=== PATIENT | female | born 1975 | race Caucasian/White ===

== ENCOUNTER 2019-12-12 10:00 | Inpatient (IN) | payer OTHER ==
[~2019-12-12] VITALS: Ht 160 cm; Wt 73.4 kg
[2019-12-12] VITALS (7 sets, daily range): BP systolic 98–110; BP diastolic 56–79
[~2019-12-12 10:00] MED LIST: LIDOcaine 2% (20 mg/ml) 5ml cardiac syringe ONE; MAGNESIUM SULFATE 4 MEQ/ML (5gm/10ml) injection ONE; NORepinephrine 1 mg/ml inj IV ONE; albumin (human) 25% 100 ML IV solution IV ONE; aminocaproic acid 250 MG/1 ML inj. ONE; calcium chloride 100 MG/1 ML inj IV ONE; heparin 1,000 units/ml 10ml inj ONE; heparin 10,000 units/1 ML INJ ONE; methylPREDNISolone sod succ 1000mg vial ONE; phenylephrine 10mg/ml inj. ONE; potassium Cl 2 mEq/ml inj IV ONE; sodium bicarbonate (8.4%) 1 mEq/ml syringe ONE
[2019-12-12 11:21] LABS: BASOPHILS # (AUTO) 0.1 X10'3 (0-0.2); EOSINOPHILS # (AUTO) 0.2 X10'3 (0-0.9)
[2019-12-12 11:23] LABS: BASOPHILS % (AUTO) 1.3 % (0-1); EOSINOPHILS % (AUTO) 2.8 % (0-6); HEMATOCRIT 43.5 % (35.0-45.0); HEMOGLOBIN 15.9 g/dl (12.0-16.0); LYMPHOCYTES # (AUTO) 1.4 X10'3 (1.1-4.8); LYMPHOCYTES % (AUTO) 19.4 % (21-51); MEAN CORPUSCULAR HEMOGLOBIN 32.8 PG (27.0-31.0); MEAN CORPUSCULAR HGB CONC 36.6 g/dL (33.0-36.5); MEAN CORPUSCULAR VOLUME 89.5 FL (78-98); MEAN PLATELET VOLUME 9.4 FL (7.4-10.4); MONOCYTES # (AUTO) 0.6 X10'3 (0-0.9); MONOCYTES % (AUTO) 7.7 % (2-12); NEUTROPHILS # (AUTO) 4.9 X10'3 (1.8-7.7); NEUTROPHILS % (AUTO) 68.8 % (42-75); PLATELET COUNT 356 X10'3 (140-440); RED BLOOD COUNT 4.86 X10'6 (4.20-5.60); RED CELL DISTRIBUTION WIDTH 13.9 % (11.5-14.5); WHITE BLOOD COUNT 7.1 X10'3 (4.5-11.0)
[2019-12-12] MEDS ORDERED: nitroGLYCERIN 0.4mg SUBLingual tab SL PRN (11:30)
[2019-12-12] MEDS ORDERED: aspirin 81mg tab.chew PO ONE (11:30)
[2019-12-12 11:36] LABS: ALANINE AMINOTRANSFERASE 67 U/L (12-78); ALBUMIN 4.5 G/DL (3.4-5.0); ALBUMIN/GLOBULIN RATIO 1.1 (1.1-1.5); ALKALINE PHOSPHATASE 58 IU/L (46-116); ANION GAP 8 (8-16); ASPARTATE AMINO TRANSFERASE 49 U/L (10-37); BILIRUBIN,TOTAL 0.9 MG/DL (0.1-1.0); BLOOD UREA NITROGEN 12 MG/DL (7-18); BUN/CREATININE RATIO 20.3 (6.6-38.0); CALCIUM 9.4 MG/DL (8.5-10.1); CHLORIDE 101 MMOL/L (99-107); CREATININE 0.59 MG/DL (0.40-0.90); GLUCOSE 137 MG/DL (70-104); POTASSIUM 3.5 MMOL/L (3.5-5.1); SODIUM 139 MMOL/L (135-145); TOTAL CARBON DIOXIDE 29.8 MMOL/L (24-32); TOTAL PROTEIN 8.7 G/DL (6.4-8.2); eGFR > 90 ML/MIN
[2019-12-12] MEDS ORDERED: heparin 25,000 UNIT/250ml bag 250 ML IV SCH ×2 (11:42→11:58)
[2019-12-12] MEDS ORDERED: ondansetron/PF 4mg/2ml inj IV ONE ×2 (11:45)
[2019-12-12] MEDS ORDERED: heparin 10,000 units/1 ML INJ IV PRN ×2 (11:45→12:00)
[2019-12-12] MEDS ORDERED: heparin 10,000 units/1 ML INJ IV ONE ×2 (11:45→11:50)
[2019-12-12] MEDS ORDERED: normal saline 1000ml 1,000 ML IV SCH (11:58)
[2019-12-12] MEDS ORDERED: ondansetron/PF 4mg/2ml inj IV PRN (12:00)
[2019-12-12] MEDS ORDERED: magnesium 4gm in 100ml NS 100 ML IV PRN ×3 (12:00→21:05)
[2019-12-12] MEDS ORDERED: acetaminophen 325mg tablet PO PRN ×5 (12:00→21:05)
[2019-12-12] MEDS ORDERED: mag hydrox/Alum hydrox/simeth 30ml oral suspension PO PRN (12:00)
[2019-12-12] MEDS ORDERED: magnesium Cl slow-release 64mg tablet PO PRN (12:00)
[2019-12-12] MEDS ORDERED: potassium Cl 20 mEq SR tablet PO PRN ×3 (12:00→14:55)
[2019-12-12] MEDS ORDERED: HYDROcodone/acetaminophen 5mg/325mg tablet PO PRN (12:00)
[2019-12-12] MEDS ORDERED: morphine 2 MG/ML inj. syringe IV PRN ×2 (12:00)
[2019-12-12] MEDS ORDERED: magnesium hydroxide 30ml (MOM) UD suspension PO PRN ×2 (12:00→21:05)
[2019-12-12] MEDS ORDERED: potassium CL 10mEq/100ml bag 100 ML IV PRN ×2 (12:00)
[2019-12-12] MEDS ORDERED: HYDROcodone/acetaminophen 10/325mg tab PO PRN ×2 (12:00→21:05)
[2019-12-12] MEDS ORDERED: bisacodyl 10mg suppository rectal RC PRN ×2 (12:00→21:05)
[2019-12-12] MEDS ORDERED: magnesium 2GM in 50ml NS 50 ML IV PRN ×2 (12:00→14:55)
[2019-12-12 12:08] LABS: PARTIAL THROMBOPLASTIN TIME 24 SECONDS (22-32)
[2019-12-12] MEDS ORDERED: iohexol 350 MG/1 ML 200ml bottle ONE ×2 (12:30→13:54)
[2019-12-12] MEDS ORDERED: LIDOcaine 1% (10mg/ml)w/preservative injection 20ml MDV ONE (12:30)
[2019-12-12] MEDS ORDERED: fentaNYL/PF 50MCG/1 ML 2ML syringe ONE (12:30)
[2019-12-12] MEDS ORDERED: heparin 1,000unit/ml 10ml vial 10 ML ONE (12:30)
[2019-12-12] MEDS ORDERED: iohexol 350 MG/ML 50ML vial IV ONE (12:30)
[2019-12-12] MEDS ORDERED: midazolam 2 mg/2 ml injection ONE ×2 (12:30→13:45)
[2019-12-12] MEDS ORDERED: LEVO88TA7 PO (12:47)
[2019-12-12] MEDS ORDERED: CITA10TA9 PO (12:47)
[2019-12-12] MEDS ORDERED: nitroGLYCERIN-Tridil 50MG/D5W 250 ML IV ONE (13:04)
[2019-12-12 13:20] LABS: HEMOGLOBIN A1C 4.7 % (4.5-6.2)
[2019-12-12 13:57] LABS: LARGE PLATELETS MODERATE; PLATELET ESTIMATE NORMAL
[2019-12-12 13:59] LABS: SPHEROCYTES 1+
[2019-12-12] MEDS ORDERED: proCHLORperazine 10 MG/2 ml inj ONE (14:10)
[2019-12-12] MEDS ORDERED: HYDROmorphone 1 mg/ml syringe ONE (14:37)
[2019-12-12] MEDS: Insulin Reg/NS 100units/100mL 100 ML IV SCH (14:52)
[2019-12-12] MEDS ORDERED: insulin glargine (Lantus) pen - multi-dose SQ PRN ×2 (14:55→21:05)
[2019-12-12] MEDS ORDERED: potassium Cl 20mEq/100mL bag 100 ML IV PRN (14:55)
[2019-12-12] MEDS ORDERED: MALTODEXTRIN/FRUCTOSE 0.68 KCAL/ML LIQUID 296ML BOTTLE PO ONE (14:55)
[2019-12-12] MEDS ORDERED: gabapentin 400mg capsule PO ONE (14:55)
[2019-12-12] MEDS ORDERED: cefazolin/dext.iso 2gm/50ml 50 ML IV ONE (14:55)
[2019-12-12] MEDS ORDERED: vancomycin/NS 1 GM ADD-VANTAGE 250 ML IV ONE (14:55)
[2019-12-12] MEDS ORDERED: MESSAGE TO NURSING PO ONE ×4 (14:55)
[2019-12-12] MEDS ORDERED: dextrose 50%-water 50ml dispensing syringe IV PRN ×2 (14:55→21:05)
[2019-12-12] MEDS ORDERED: SUFENTANIL CITRATE 50 MCG/ML 2ml ampule IV ONE (15:15)
[2019-12-12] MEDS ORDERED: MIDAZolam 1mg/ml 10ml vial ONE (15:16)
[2019-12-12] MEDS ORDERED: ringers solution, lacted 1,000 ML IV ONE (15:25)
[2019-12-12] MEDS ORDERED: ceFAZolin 1000mg inj ONE (16:22)
[2019-12-12] MEDS ORDERED: cyclobenzaprine 10mg tablet PO PRN (16:25)
[2019-12-12] MEDS ORDERED: OXAZEpam 15mg capsule PO PRN (16:25)
[2019-12-12] MEDS ORDERED: albumin (Human) 5% 250ml BOTTLE IV ONE (16:28)
[2019-12-12] MEDS ORDERED: isoflurane 100ml inhalation liquid IH ONE (16:28)
[2019-12-12] MEDS ORDERED: heparin 1,000 units/ml 10ml inj ONE (16:28)
[2019-12-12] MEDS ORDERED: aminocaproic acid 250 MG/1 ML inj. ONE (16:28)
[2019-12-12] MEDS ORDERED: protamine sulf. 10mg/ml inj. IV ONE (16:28)
[2019-12-12] MEDS ORDERED: DOBUTamine/D5W 500mg/250ml premix IV ONE (16:28)
[2019-12-12] MEDS ORDERED: nitroGLYCERIN in D5W 50mg/250ml (Tridil) infusion IV ONE (16:28)
--- NOTE | 2019-12-12 16:30 | NUR ---
[id number] received from track repair laborer on iabp. pt with hearing disability used full face shield instead of mask so pt may read lips. prepared for surgery, chlorhex. bath and new gown, carotids done. 2 rings and one set of earring removed and given to at bedside witnessed by ruth cullenor mirta. pt very sleepy therefore consent was discussed pt and . pt on menes tampon removed intact. fc placed with return of clear yellow urine greater than 350cc. just after pt left for cvor lab called with critical ptt reported to payton kirby in or to give message. ativan held d/t pt already sleepy cvor rn aware.
[2019-12-12 16:32] LABS: PARTIAL THROMBOPLASTIN TIME > 139 SECONDS (22-32)
[2019-12-12 17:46] LABS: ABG BASE EXCESS -4.5 mmol/L (-2.0-2.0); ABG HCO3 19.5 mmol/L (22.0-26.0); ABG OXYGEN SATURATION 98.5 % (94-97); ABG PCO2 32.5 mmHg (32.0-45.0); ABG PO2 184.5 mmHg (75.0-100.0); CL (ABG) 105 mmol/L (98-110); FCOHb 0.3 % (0.0-3.9); FMetHb 0.2 % (0.0-1.5); GLUCOSE (ABG) 127 mg/dl (70-140); IONIZED CA (ABG) 1.06 mmol/L (1.10-1.43); K (ABG) 3.5 mmol/L (3.5-5.0); TOTAL HEMOGLOBIN 12.6 G/dl (12.0-16.0)
[2019-12-12] MEDS ORDERED: papaverine 30 mg/ml 2ml inj. IA ONE (17:51)
[2019-12-12] MEDS ORDERED: 0.9 % SODIUM CHLORIDE 10 ML VIAL ONE ×3 (17:55)
[2019-12-12] MEDS ORDERED: rocuronium 10mg/ml inj IV ONE ×3 (17:55→18:24)
[2019-12-12] MEDS ORDERED: propofol inj 20 ML IV ONE (17:56)
[2019-12-12] MEDS ORDERED: LIDOcaine 2% (20mg/ml) 5ml vial ONE (17:56)
[2019-12-12] MEDS ORDERED: phenylephrine 10mg/ml inj. ONE (17:56)
[2019-12-12] MEDS ORDERED: ePHEDrine 50MG/ML INJ. ONE (17:56)
[2019-12-12] MEDS ORDERED: midazolam 2 mg/2 ml injection IV PRN (18:40)
[2019-12-12] MEDS ORDERED: fentaNYL/PF 50MCG/1 ML 2ML syringe IV PRN (18:40)
[2019-12-12] MEDS ORDERED: heparin 10,000 units/1 ML INJ IR ONE (19:00)
[2019-12-12 19:01] LABS: ABG BASE EXCESS -0.6 mmol/L (-2.0-2.0); ABG HCO3 22.8 mmol/L (22.0-26.0); ABG OXYGEN SATURATION 99.3 % (94-97); ABG PCO2 32.7 mmHg (32.0-45.0); ABG PO2 502.6 mmHg (75.0-100.0); CL (ABG) 103 mmol/L (98-110); FCOHb 0.2 % (0.0-3.9); FMetHb 0.2 % (0.0-1.5); FO2Hb 98.9 % (94-97); GLUCOSE (ABG) 139 mg/dl (70-140); IONIZED CA (ABG) 0.91 mmol/L (1.10-1.43); K (ABG) 4.8 mmol/L (3.5-5.0); TOTAL HEMOGLOBIN 8.9 G/dl (12.0-16.0)
[2019-12-12 19:20] LABS: ABG BASE EXCESS VENOUS -2.1 mmol/L; ABG HCO3 VENOUS 22.9 mmol/L; ABG PCO2 VENOUS 40.2 mmHg; ABG PO2 VENOUS 49.4 mmHg; CL (ABG) 103 mmol/L (98-110); FCOHb VENOUS 0.5 %; FHHb VENOUS 14.8 %; FO2Hb VENOUS 84.7 %; GLUCOSE (ABG) 140 mg/dl (70-140); IONIZED CA (ABG) 0.96 mmol/L (1.10-1.43); K (ABG) 4.2 mmol/L (3.5-5.0); TOTAL HEMOGLOBIN 9.7 G/dl (12.0-16.0)
[2019-12-12 19:45] LABS: ABG BASE EXCESS 1.9 mmol/L (-2.0-2.0); ABG HCO3 26.8 mmol/L (22.0-26.0); ABG OXYGEN SATURATION 99.3 % (94-97); ABG PCO2 43.9 mmHg (32.0-45.0); ABG PO2 475.5 mmHg (75.0-100.0); CL (ABG) 102 mmol/L (98-110); FCOHb 0.4 % (0.0-3.9); FMetHb 0.1 % (0.0-1.5); FO2Hb 98.8 % (94-97); GLUCOSE (ABG) 147 mg/dl (70-140); IONIZED CA (ABG) 1.57 mmol/L (1.10-1.43); K (ABG) 3.9 mmol/L (3.5-5.0); TOTAL HEMOGLOBIN 8.4 G/dl (12.0-16.0)
[2019-12-12] MEDS ORDERED: metoprolol tartrate 12.5mg (1/2 tablet) PO SCH (20:00)
[2019-12-12] MEDS ORDERED: K and/or MAG REPLACEMENT MC SCH (20:00)
[2019-12-12 20:11] LABS: ABG BASE EXCESS -2.5 mmol/L (-2.0-2.0); ABG HCO3 20.6 mmol/L (22.0-26.0); ABG OXYGEN SATURATION 98.9 % (94-97); ABG PCO2 29.4 mmHg (32.0-45.0); ABG PO2 364.8 mmHg (75.0-100.0); CL (ABG) 105 mmol/L (98-110); FCOHb 0.3 % (0.0-3.9); FMetHb 0.6 % (0.0-1.5); GLUCOSE (ABG) 137 mg/dl (70-140); IONIZED CA (ABG) 1.17 mmol/L (1.10-1.43); K (ABG) 3.6 mmol/L (3.5-5.0); TOTAL HEMOGLOBIN 9.7 G/dl (12.0-16.0)
[2019-12-12] MEDS ORDERED: temazepam 15mg capsule PO PRN (21:00)
--- NOTE | 2019-12-12 21:00 | NUR ---
Received to room 2037, accompanied by MDs and surgical crew. Placed on ventilator, to sdc teacher, arterial line and PA line pressure monitored. Chest tubes to suction at 20 cm. August cath to gravity drainage. Dressings are dry and intact. See assessment record. All vasoactive drugs are infusing via central line.
[2019-12-12] MEDS ORDERED: nitroGLYCERIN-Tridil 50MG/D5W 250 ML IV PRN (21:03)
[2019-12-12] MEDS ORDERED: niCARDipine-NS 40mg/200ml IVPB 200 ML IV PRN (21:03)
[2019-12-12] MEDS ORDERED: DOPamine 400mg/D5W 250ml 250 ML IV PRN (21:03)
[2019-12-12] MEDS ORDERED: Insulin Reg/NS 100units/100mL 100 ML IV SCH (21:03)
[2019-12-12] MEDS ORDERED: pantoprazole 40 MG vial IV ONE (21:05)
[2019-12-12] MEDS ORDERED: sodium phosphate inj. 30 MMOL in dextrose 5%-water 250 ML IV PRN (21:05)
[2019-12-12] MEDS ORDERED: morphine 4 MG/ML inj SYRINge IV PRN (21:05)
[2019-12-12] MEDS ORDERED: magnesium citrate 296ml oral solution PO PRN (21:05)
[2019-12-12] MEDS ORDERED: sodium phosphate inj. 15 MMOL in dextrose 5%-water 250 ML IV PRN (21:05)
[2019-12-12] MEDS ORDERED: Neutra Phos packet PO PRN (21:05)
[2019-12-12] MEDS ORDERED: metoclopramide 5 mg/ml inj IV PRN (21:05)
[2019-12-12] MEDS ORDERED: mineral oil 133ml enema RC PRN (21:05)
[2019-12-12] MEDS ORDERED: normal saline 250ml IV soln 250 ML IV PRN (21:05)
[2019-12-12] MEDS ORDERED: morphine 4 MG/ML inj SYRINge ONE (21:15)
[2019-12-12] MEDS ORDERED: propofol 1000mg/100ml bottle 100 ML IV ONE (21:40)
[2019-12-12 21:46] LABS: BASOPHILS % (AUTO) 0.2 % (0-1); EOSINOPHILS % (AUTO) 0 % (0-6); HEMOGLOBIN 11.2 g/dl (12.0-16.0); LYMPHOCYTES # (AUTO) 0.6 X10'3 (1.1-4.8); LYMPHOCYTES % (AUTO) 2.5 % (21-51); MEAN CORPUSCULAR HEMOGLOBIN 32.6 PG (27.0-31.0); MEAN CORPUSCULAR HGB CONC 36.2 g/dL (33.0-36.5); MEAN PLATELET VOLUME 9.4 FL (7.4-10.4); MONOCYTES # (AUTO) 0.8 X10'3 (0-0.9); MONOCYTES % (AUTO) 3.3 % (2-12); NEUTROPHILS # (AUTO) 21.3 X10'3 (1.8-7.7); PLATELET COUNT 137 X10'3 (140-440); RED BLOOD COUNT 3.44 X10'6 (4.20-5.60); RED CELL DISTRIBUTION WIDTH 13.7 % (11.5-14.5); WHITE BLOOD COUNT 22.6 X10'3 (4.5-11.0)
[2019-12-12 21:54] LABS: PARTIAL THROMBOPLASTIN TIME 26 SECONDS (22-32)
[2019-12-12 21:56] LABS: ALANINE AMINOTRANSFERASE 89 U/L (12-78); ALBUMIN 3.3 G/DL (3.4-5.0); ALBUMIN/GLOBULIN RATIO 1.7 (1.1-1.5); ALKALINE PHOSPHATASE 31 IU/L (46-116); ANION GAP 9 (8-16); ASPARTATE AMINO TRANSFERASE 236 U/L (10-37); BILIRUBIN,TOTAL 1.2 MG/DL (0.1-1.0); BLOOD UREA NITROGEN 7 MG/DL (7-18); BUN/CREATININE RATIO 10.1 (6.6-38.0); CHLORIDE 109 MMOL/L (99-107); CREATININE 0.69 MG/DL (0.40-0.90); GLUCOSE 142 MG/DL (70-104); POTASSIUM 3.3 MMOL/L (3.5-5.1); SODIUM 145 MMOL/L (135-145); TOTAL CARBON DIOXIDE 27.5 MMOL/L (24-32); TOTAL PROTEIN 5.2 G/DL (6.4-8.2); eGFR > 90 ML/MIN
[2019-12-12 21:57] LABS: MAGNESIUM 2.9 MG/DL (1.5-2.4); PHOSPHORUS 2.2 MG/DL (2.3-4.5)
[2019-12-12] MEDS: morphine 4 MG/ML inj SYRINge IV PRN ×2 (22:02→23:11)
[2019-12-12] MEDS: albumin (Human) 5% 250ml 250 ML IV PRN (22:05)
[2019-12-12 22:16] LABS: ABG BASE EXCESS -0.4 mmol/L (-2.0-2.0); ABG HCO3 24.9 mmol/L (22.0-26.0); ABG OXYGEN SATURATION 98.7 % (94-97); ABG PCO2 (T) 43.3 mmHg (32.0-45.0); ABG PO2 (T) 214.2 mmHg (75.0-100.0); FCOHb 0.3 % (0.0-3.9); FMetHb 0.3 % (0.0-1.5); FO2Hb 98.1 % (94-97); PEEP 5 cm H2O; RESPIRATORY RATE 12 b/min; TIDAL VOLUME 500 mL; TOTAL HEMOGLOBIN 12.5 G/dl (12.0-16.0)
--- NOTE | 2019-12-12 22:33 | NUR ---
Dr Joaquin updated on patient's current hemodynamics, chest tube output and latest labs. Orders received.
[2019-12-12] MEDS ORDERED: dexmedetomidin/NS 400mcg/100ml 100 ML IV SCH (22:35)
[2019-12-12] MEDS: mupirocin 2% nasal ointment 1gm UD NS SCH (23:11)
[2019-12-12] MEDS: sodium chloride 0.45% 1,000 ML IV SCH (23:12)
[2019-12-12] MEDS: propofol 1000mg/100ml bottle 100 ML IV SCH (23:14)
[2019-12-12 23:21] LABS: TRIGLYCERIDES 27 MG/DL (20-135)
[2019-12-12 23:26] LABS: TROPONIN I 421.47 NG/ML (0.0-0.05)
[2019-12-13] VITALS (24 sets, daily range): BP systolic 87–115; BP diastolic 50–72
--- NOTE | 2019-12-13 01:02 | NUR ---
All cryo given, unable to scan, See paper chart for details
[2019-12-13] MEDS: ceFAZolin 1GM/D5W- ADD-VANTAGE 50 ML IV SCH ×4 (01:05→23:44)
[2019-12-13] MEDS: dexmedetomidine/D5W 100mL 100 ML IV SCH ×4 (02:23→13:47)
[2019-12-13] MEDS: albumin (Human) 5% 250ml 250 ML IV PRN ×2 (02:56→03:43)
[2019-12-13 03:11] LABS: ALANINE AMINOTRANSFERASE 90 U/L (12-78); ALBUMIN 3.8 G/DL (3.4-5.0); ALBUMIN/GLOBULIN RATIO 1.6 (1.1-1.5); ALKALINE PHOSPHATASE 27 IU/L (46-116); ANION GAP 7 (8-16); ASPARTATE AMINO TRANSFERASE 218 U/L (10-37); BILIRUBIN,TOTAL 1.2 MG/DL (0.1-1.0); BLOOD UREA NITROGEN 8 MG/DL (7-18); CALCIUM 7.9 MG/DL (8.5-10.1); CHLORIDE 108 MMOL/L (99-107); CREATININE 0.73 MG/DL (0.40-0.90); GLUCOSE 166 MG/DL (70-104); MAGNESIUM 2.4 MG/DL (1.5-2.4); PHOSPHORUS 1.9 MG/DL (2.3-4.5); SODIUM 145 MMOL/L (135-145); TOTAL CARBON DIOXIDE 30.1 MMOL/L (24-32); TOTAL PROTEIN 6.2 G/DL (6.4-8.2); TRIGLYCERIDES 44 MG/DL (20-135); eGFR 87 ML/MIN
[2019-12-13] MEDS: ondansetron/PF 4mg/2ml inj IV PRN ×2 (03:16→10:22)
[2019-12-13 03:19] LABS: PARTIAL THROMBOPLASTIN TIME 30 SECONDS (22-32)
[2019-12-13] MEDS: potassium Cl 20mEq/100mL bag 100 ML IV PRN ×6 (03:19→17:49)
[2019-12-13] MEDS: propofol 1000mg/100ml bottle 100 ML IV SCH (03:24)
--- NOTE | 2019-12-13 03:25 | NUR ---
Patient restless, nauseated, Zofran given x 1. Titrating Precedex for agitation. Albumin given for for hypotension. Replacing potassium. Will continue to monitor
[2019-12-13 03:33] LABS: BASOPHILS % (AUTO) 0.1 % (0-1); EOSINOPHILS % (AUTO) 0 % (0-6); HEMATOCRIT 25.2 % (35.0-45.0); HEMOGLOBIN 9.2 g/dl (12.0-16.0); LYMPHOCYTES # (AUTO) 0.2 X10'3 (1.1-4.8); LYMPHOCYTES % (AUTO) 1.2 % (21-51); MEAN CORPUSCULAR HEMOGLOBIN 32.7 PG (27.0-31.0); MEAN CORPUSCULAR HGB CONC 36.6 g/dL (33.0-36.5); MEAN CORPUSCULAR VOLUME 89.3 FL (78-98); MEAN PLATELET VOLUME 9.4 FL (7.4-10.4); MONOCYTES # (AUTO) 0.5 X10'3 (0-0.9); MONOCYTES % (AUTO) 3.5 % (2-12); NEUTROPHILS # (AUTO) 14.4 X10'3 (1.8-7.7); NEUTROPHILS % (AUTO) 95.2 % (42-75); PLATELET COUNT 102 X10'3 (140-440); RED BLOOD COUNT 2.82 X10'6 (4.20-5.60); RED CELL DISTRIBUTION WIDTH 13.6 % (11.5-14.5); WHITE BLOOD COUNT 15.1 X10'3 (4.5-11.0)
[2019-12-13 04:40] LABS: ABG BASE EXCESS 0.7 mmol/L (-2.0-2.0); ABG HCO3 24.8 mmol/L (22.0-26.0); ABG OXYGEN SATURATION 97.4 % (94-97); ABG PCO2 (T) 37.2 mmHg (32.0-45.0); ABG PO2 (T) 111.5 mmHg (75.0-100.0); FCOHb 0.3 % (0.0-3.9); FMetHb 0.3 % (0.0-1.5); FO2Hb 96.8 % (94-97); PEEP 5 cm H2O; RESPIRATORY RATE 12 b/min; TIDAL VOLUME 500 mL; TOTAL HEMOGLOBIN 8.7 G/dl (12.0-16.0)
--- NOTE | 2019-12-13 05:55 | NUR ---
Dr. Joaquin update on patient's status, current hemodynamics, and output. Orders received.
[2019-12-13] MEDS ORDERED: famotidine/PF 10 mg/ml inj IV ONE (06:00)
[2019-12-13] MEDS ORDERED: LORazepam 2 mg/ml vial IV ONE (06:00)
[2019-12-13] MEDS ORDERED: NORepinephrine 8mg/ 250ml NS 250 ML IV PRN (06:02)
--- NOTE | 2019-12-13 06:30 | NUR ---
Problems reprioritized. Patient report given, questions answered & plan of care reviewed with Edward STEPHEN.
--- NOTE | 2019-12-13 06:31 | NUR ---
Patient in room ICU 2037. I have received report from Elza STEPHEN and had the opportunity to ask questions and assume patient care.
--- NOTE | 2019-12-13 07:10 | NUR ---
Dr Joaquin present at this time. he removed the balloon pump at 0710. pt tolerated well. femstop in place.
[2019-12-13] MEDS ORDERED: atorvastatin 20mg tablet PO SCH (08:00)
[2019-12-13] MEDS: metoprolol tartrate 12.5mg (1/2 tablet) PO SCH ×2 (08:00→20:00)
[2019-12-13] MEDS ORDERED: mupirocin 2% nasal ointment 1gm UD NS SCH (08:00)
[2019-12-13] MEDS ORDERED: aspirin 81mg tablet.DR PO SCH (08:30)
[2019-12-13] MEDS: CITALOpram 10mg tablet PO SCH (08:41)
[2019-12-13] MEDS: gabapentin 300mg capsule PO SCH ×3 (08:41→21:00)
[2019-12-13] MEDS: atorvastatin 10mg tablet PO SCH (08:42)
[2019-12-13] MEDS: aspirin 325mg tablet, delayed-release (Ecotrin) PO SCH (08:42)
[2019-12-13] MEDS: mupirocin 2% nasal ointment 1gm UD NS SCH ×2 (08:42→20:08)
[2019-12-13] MEDS: sennosides/docusate sodium tablet PO SCH ×2 (08:42→20:00)
[2019-12-13 09:06] LABS: ACTIVATED CLOTTING TIME 113 SEC (101-148)
[2019-12-13] MEDS: levoTHYROXINE 88mcg tablet PO SCH (09:39)
[2019-12-13] MEDS: vancomycin/NS 1 GM ADD-VANTAGE 250 ML IV SCH ×2 (09:43→20:08)
[2019-12-13] MEDS ORDERED: MESSAGE TO NURSING PO ONE (10:00)
[2019-12-13] MEDS: magnesium 2GM in 50ml NS 50 ML IV PRN (12:47)
--- NOTE | 2019-12-13 13:36 | NUR ---
femstop removed at 1320 per protocol. site is CDI at this time. no signs of hematoma.
[2019-12-13 13:49] LABS: PHOSPHORUS 2.8 MG/DL (2.3-4.5); POTASSIUM 3.7 MMOL/L (3.5-5.1)
--- NOTE | 2019-12-13 14:29 | NUR ---
Nutrition consult: Pt s/p CABG x 2 POD # 1. Pt would benefit from nutrition therapy education once stable. Will continue to follow. Addendum: 12/13/19 at [address] Amended: Links added.
[2019-12-13 17:25] LABS: ABG BASE EXCESS 1.2 mmol/L (-2.0-2.0); ABG HCO3 25.4 mmol/L (22.0-26.0); ABG OXYGEN SATURATION 96.1 % (94-97); ABG PCO2 (T) 38.3 mmHg (32.0-45.0); ABG PO2 (T) 85.5 mmHg (75.0-100.0); FCOHb 0.3 % (0.0-3.9); FO2Hb 95.8 % (94-97); PEEP 5 cm H2O; TOTAL HEMOGLOBIN 8.6 G/dl (12.0-16.0)
--- NOTE | 2019-12-13 17:56 | NUR ---
extubated at 1730. tolerated well. on 4L NC and saturations are 97%
[2019-12-13] MEDS: morphine 4 MG/ML inj SYRINge IV PRN ×2 (18:30→20:57)
[2019-12-13] MEDS: mineral oil/petrolatum ophthal oint EACHEYE SCH (20:00)
[2019-12-14] VITALS (23 sets, daily range): BP systolic 87–129; BP diastolic 47–73
[2019-12-14] MEDS: Insulin Reg/NS 100units/100mL 100 ML IV SCH (00:12)
[2019-12-14] MEDS: mineral oil/petrolatum ophthal oint EACHEYE SCH ×4 (02:00→18:58)
[2019-12-14] MEDS: morphine 4 MG/ML inj SYRINge IV PRN ×2 (02:36→05:30)
[2019-12-14 03:18] LABS: BASOPHILS % (AUTO) 0 % (0-1); EOSINOPHILS % (AUTO) 0 % (0-6); HEMATOCRIT 22.9 % (35.0-45.0); HEMOGLOBIN 8.1 g/dl (12.0-16.0); LYMPHOCYTES # (AUTO) 1.3 X10'3 (1.1-4.8); LYMPHOCYTES % (AUTO) 7.4 % (21-51); MEAN CORPUSCULAR HEMOGLOBIN 32.3 PG (27.0-31.0); MEAN CORPUSCULAR HGB CONC 35.5 g/dL (33.0-36.5); MEAN CORPUSCULAR VOLUME 91.1 FL (78-98); MEAN PLATELET VOLUME 10.8 FL (7.4-10.4); MONOCYTES # (AUTO) 1.4 X10'3 (0-0.9); MONOCYTES % (AUTO) 7.9 % (2-12); NEUTROPHILS # (AUTO) 14.5 X10'3 (1.8-7.7); NEUTROPHILS % (AUTO) 84.7 % (42-75); PLATELET COUNT 125 X10'3 (140-440); RED BLOOD COUNT 2.51 X10'6 (4.20-5.60); RED CELL DISTRIBUTION WIDTH 13.4 % (11.5-14.5); WHITE BLOOD COUNT 17.2 X10'3 (4.5-11.0)
[2019-12-14 03:39] LABS: ALBUMIN 3.4 G/DL (3.4-5.0); ANION GAP 5 (8-16); BLOOD UREA NITROGEN 12 MG/DL (7-18); BUN/CREATININE RATIO 19.7 (6.6-38.0); CALCIUM 7.4 MG/DL (8.5-10.1); CHLORIDE 107 MMOL/L (99-107); CREATININE 0.61 MG/DL (0.40-0.90); GLUCOSE 145 MG/DL (70-104); MAGNESIUM 2.4 MG/DL (1.5-2.4); POTASSIUM 4.1 MMOL/L (3.5-5.1); SODIUM 140 MMOL/L (135-145); TOTAL CARBON DIOXIDE 28.5 MMOL/L (24-32); eGFR > 90 ML/MIN
[2019-12-14] MEDS: ketorolac tromethamine 15mg/ml inj. IV SCH ×3 (07:30→20:51)
[2019-12-14] MEDS: ondansetron/PF 4mg/2ml inj IV PRN (07:30)
[2019-12-14] MEDS: ceFAZolin 1GM/D5W- ADD-VANTAGE 50 ML IV SCH (07:36)
[2019-12-14] MEDS: metoprolol tartrate 12.5mg (1/2 tablet) PO SCH ×2 (08:00→18:58)
[2019-12-14] MEDS: potassium Cl 20mEq/100mL bag 100 ML IV PRN ×2 (08:28→08:58)
[2019-12-14] MEDS: vancomycin/NS 1 GM ADD-VANTAGE 250 ML IV SCH (08:57)
[2019-12-14] MEDS: aspirin 325mg tablet, delayed-release (Ecotrin) PO SCH (08:58)
[2019-12-14] MEDS: atorvastatin 10mg tablet PO SCH (08:58)
[2019-12-14] MEDS: sennosides/docusate sodium tablet PO SCH ×2 (08:58→20:51)
[2019-12-14] MEDS: CITALOpram 10mg tablet PO SCH (08:58)
[2019-12-14] MEDS: HYDROcodone/acetaminophen 10/325mg tab PO PRN (08:58)
[2019-12-14] MEDS: levoTHYROXINE 88mcg tablet PO SCH (08:58)
[2019-12-14] MEDS: gabapentin 300mg capsule PO SCH ×3 (08:58→20:51)
[2019-12-14] MEDS: mupirocin 2% nasal ointment 1gm UD NS SCH (08:58)
[2019-12-14] MEDS: pantoprazole 40mg Tablet.DR PO SCH (09:00)
[2019-12-14] MEDS ORDERED: furosemide 40mg/4ml inj IV ONE (13:25)
[2019-12-14] MEDS: magnesium 2GM in 50ml NS 50 ML IV PRN (13:46)
--- NOTE | 2019-12-14 14:30 | NUR ---
Dr. Joaquin notified and aware that patient's SBP has been in the upper 80s low 90s with MAP in the in the 60s; orders to hold ONE time dose of Lasix. Also, Dr. Joaquin aware patient with low urine output with some hours with 0ml urine; no new orders at this time.
[2019-12-14] MEDS: dexmedetomidine/D5W 100mL 100 ML IV SCH (15:38)
[2019-12-14 17:31] LABS: MAGNESIUM 3.5 MG/DL (1.5-2.4); POTASSIUM 5.2 MMOL/L (3.5-5.1)
--- NOTE | 2019-12-14 18:34 | NUR ---
Problems reprioritized. Patient report given, questions answered & plan of care reviewed with Libby STEPHEN.
[2019-12-14] MEDS: sodium chloride 0.45% 1,000 ML IV SCH (21:03)
[2019-12-15] VITALS (16 sets, daily range): BP systolic 102–135; BP diastolic 55–75
[2019-12-15] MEDS: mineral oil/petrolatum ophthal oint EACHEYE SCH ×4 (02:00→19:21)
[2019-12-15] MEDS: ketorolac tromethamine 15mg/ml inj. IV SCH ×4 (02:11→19:25)
[2019-12-15 02:22] LABS: BASOPHILS # (AUTO) 0.1 X10'3 (0-0.2); BASOPHILS % (AUTO) 0.6 % (0-1); EOSINOPHILS # (AUTO) 0.1 X10'3 (0-0.9); EOSINOPHILS % (AUTO) 0.7 % (0-6); HEMOGLOBIN 7.7 g/dl (12.0-16.0); LYMPHOCYTES # (AUTO) 3.1 X10'3 (1.1-4.8); LYMPHOCYTES % (AUTO) 22.8 % (21-51); MEAN CORPUSCULAR HGB CONC 35.8 g/dL (33.0-36.5); MEAN CORPUSCULAR VOLUME 92.2 FL (78-98); MEAN PLATELET VOLUME 10.5 FL (7.4-10.4); MONOCYTES # (AUTO) 1.2 X10'3 (0-0.9); MONOCYTES % (AUTO) 8.8 % (2-12); NEUTROPHILS # (AUTO) 9.2 X10'3 (1.8-7.7); NEUTROPHILS % (AUTO) 67.1 % (42-75); PLATELET COUNT 137 X10'3 (140-440); RED BLOOD COUNT 2.32 X10'6 (4.20-5.60); RED CELL DISTRIBUTION WIDTH 13.8 % (11.5-14.5); WHITE BLOOD COUNT 13.8 X10'3 (4.5-11.0)
[2019-12-15 02:34] LABS: ALBUMIN 2.9 G/DL (3.4-5.0); ANION GAP 2 (8-16); BLOOD UREA NITROGEN 13 MG/DL (7-18); BUN/CREATININE RATIO 26.5 (6.6-38.0); CALCIUM 7.4 MG/DL (8.5-10.1); CHLORIDE 105 MMOL/L (99-107); CREATININE 0.49 MG/DL (0.40-0.90); GLUCOSE 110 MG/DL (70-104); MAGNESIUM 2.6 MG/DL (1.5-2.4); PHOSPHORUS 1.9 MG/DL (2.3-4.5); POTASSIUM 4.8 MMOL/L (3.5-5.1); SODIUM 135 MMOL/L (135-145); TOTAL CARBON DIOXIDE 28.4 MMOL/L (24-32); eGFR > 90 ML/MIN
[2019-12-15] MEDS: morphine 4 MG/ML inj SYRINge IV PRN (02:36)
[2019-12-15 02:37] LABS: HEMATOCRIT 21.4 % (35.0-45.0)
[2019-12-15] MEDS: dexmedetomidine/D5W 100mL 100 ML IV SCH (03:53)
--- NOTE | 2019-12-15 06:30 | NUR ---
Patient in room ICU 2037. I have received report from HAILEE Souza and had the opportunity to ask questions and assume patient care.
[2019-12-15] MEDS: atorvastatin 10mg tablet PO SCH (07:17)
[2019-12-15] MEDS: CITALOpram 10mg tablet PO SCH (07:17)
[2019-12-15] MEDS: sennosides/docusate sodium tablet PO SCH ×2 (07:17→19:25)
[2019-12-15] MEDS: levoTHYROXINE 88mcg tablet PO SCH (07:18)
[2019-12-15] MEDS: pantoprazole 40mg Tablet.DR PO SCH (07:19)
[2019-12-15] MEDS: aspirin 325mg tablet, delayed-release (Ecotrin) PO SCH (07:19)
[2019-12-15] MEDS: metoprolol tartrate 12.5mg (1/2 tablet) PO SCH ×2 (08:00→19:26)
[2019-12-15] MEDS ORDERED: potassium Cl 20mEq/100mL bag 100 ML IV PRN (09:20)
[2019-12-15] MEDS ORDERED: magnesium 2GM in 50ml NS 50 ML IV PRN (09:20)
[2019-12-15] MEDS ORDERED: magnesium 4gm in 100ml NS 100 ML IV PRN (09:20)
[2019-12-15] MEDS ORDERED: potassium Cl 20 mEq SR tablet PO PRN (09:20)
--- NOTE | 2019-12-15 11:20 | NUR ---
Problems reprioritized. Patient report given, questions answered & plan of care reviewed with HAILEE Meneses.
[2019-12-15] MEDS: albuterol 2.5 MG/3 ML nebule NEB PRN (16:41)
[2019-12-15] MEDS: ondansetron/PF 4mg/2ml inj IV PRN (17:12)
[2019-12-15] MEDS ORDERED: furosemide 40mg/4ml inj IV ONE ×2 (17:55→19:35)
--- NOTE | 2019-12-15 18:56 | NUR ---
Problems reprioritized. Patient report given, questions answered & plan of care reviewed with HAILEE Mckeon.
[2019-12-15] MEDS: HYDROcodone/acetaminophen 10/325mg tab PO PRN (19:24)
[2019-12-15] MEDS: potassium Cl 20 mEq SR tablet PO SCH (19:27)
[2019-12-15] MEDS: magnesium Cl slow-release 64mg tablet PO SCH (19:28)
[2019-12-16 02:00] VITALS: BP 121/68
[2019-12-16] MEDS: ketorolac tromethamine 15mg/ml inj. IV SCH ×2 (02:00→07:40)
[2019-12-16] MEDS: mineral oil/petrolatum ophthal oint EACHEYE SCH ×4 (02:00→18:24)
[2019-12-16 05:19] LABS: BASOPHILS # (AUTO) 0.1 X10'3 (0-0.2); EOSINOPHILS # (AUTO) 0.5 X10'3 (0-0.9); EOSINOPHILS % (AUTO) 4.3 % (0-6); HEMATOCRIT 22.1 % (35.0-45.0); HEMOGLOBIN 8.1 g/dl (12.0-16.0); LYMPHOCYTES # (AUTO) 2.1 X10'3 (1.1-4.8); LYMPHOCYTES % (AUTO) 16.8 % (21-51); MEAN CORPUSCULAR HEMOGLOBIN 33.3 PG (27.0-31.0); MEAN CORPUSCULAR HGB CONC 36.4 g/dL (33.0-36.5); MEAN CORPUSCULAR VOLUME 91.5 FL (78-98); MEAN PLATELET VOLUME 10.1 FL (7.4-10.4); MONOCYTES # (AUTO) 1.3 X10'3 (0-0.9); MONOCYTES % (AUTO) 10.3 % (2-12); NEUTROPHILS # (AUTO) 8.3 X10'3 (1.8-7.7); NEUTROPHILS % (AUTO) 67.6 % (42-75); RED BLOOD COUNT 2.42 X10'6 (4.20-5.60); RED CELL DISTRIBUTION WIDTH 13.8 % (11.5-14.5); WHITE BLOOD COUNT 12.2 X10'3 (4.5-11.0)
[2019-12-16 05:24] LABS: PLATELET COUNT 166 X10'3 (140-440)
[2019-12-16 06:05] LABS: ANION GAP 5 (8-16); BLOOD UREA NITROGEN 9 MG/DL (7-18); CHLORIDE 103 MMOL/L (99-107); CREATININE 0.53 MG/DL (0.40-0.90); GLUCOSE 105 MG/DL (70-104); SODIUM 138 MMOL/L (135-145); TOTAL CARBON DIOXIDE 30.5 MMOL/L (24-32); eGFR > 90 ML/MIN
[2019-12-16 06:12] LABS: NUCLEATED RED BLOOD CELLS 6 /100WBC (0-0); PLATELET ESTIMATE NORMAL; TOTAL CELLS COUNTED 100
[2019-12-16 06:13] LABS: ANISOCYTOSIS 1+; LARGE PLATELETS FEW; POLYCHROMASIA FEW
--- NOTE | 2019-12-16 06:15 | NUR ---
Patient in room MED 310. I have received report from HAILEE Mckeon and had the opportunity to ask questions and assume patient care.
--- NOTE | 2019-12-16 06:22 | NUR ---
Problems reprioritized. Patient report given, questions answered & plan of care reviewed with JIM STEPHEN.
[2019-12-16] MEDS: magnesium Cl slow-release 64mg tablet PO SCH ×2 (06:24→18:36)
[2019-12-16] MEDS: HYDROcodone/acetaminophen 10/325mg tab PO PRN ×2 (06:37→18:37)
[2019-12-16 07:37] VITALS: BP 125/77
[2019-12-16] MEDS: CITALOpram 10mg tablet PO SCH (07:41)
[2019-12-16] MEDS: levoTHYROXINE 88mcg tablet PO SCH (07:41)
[2019-12-16] MEDS: potassium Cl 20 mEq SR tablet PO SCH ×2 (07:41→18:44)
[2019-12-16] MEDS: aspirin 325mg tablet, delayed-release (Ecotrin) PO SCH (07:41)
[2019-12-16] MEDS: pantoprazole 40mg Tablet.DR PO SCH (07:41)
[2019-12-16] MEDS: atorvastatin 10mg tablet PO SCH (07:41)
[2019-12-16] MEDS: metoprolol tartrate 12.5mg (1/2 tablet) PO SCH ×2 (07:41→19:08)
[2019-12-16] MEDS: sennosides/docusate sodium tablet PO SCH ×2 (07:41→18:37)
[2019-12-16] MEDS ORDERED: furosemide 40mg/4ml inj IV ONE ×2 (09:05→09:30)
[2019-12-16 11:00] VITALS: BP 113/74
[2019-12-16 15:00] VITALS: BP 106/79
--- NOTE | 2019-12-16 17:58 | NUR ---
Problems reprioritized. Patient report given, questions answered & plan of care reviewed with HAILEE Mckeon.
[2019-12-16 18:00] VITALS: BP 133/77
--- NOTE | 2019-12-16 18:20 | NUR ---
Patient in room MED 310. I have received report from JIM STEPHEN and had the opportunity to ask questions and assume patient care.
[2019-12-16] MEDS: albuterol 2.5 MG/3 ML nebule NEB PRN ×2 (18:41→23:24)
[2019-12-16 22:00] VITALS: BP 135/67
[2019-12-17] MEDS: HYDROcodone/acetaminophen 10/325mg tab PO PRN ×3 (01:34→18:53)
[2019-12-17] MEDS: mineral oil/petrolatum ophthal oint EACHEYE SCH ×2 (02:00→06:49)
[2019-12-17] MEDS: albuterol 2.5 MG/3 ML nebule NEB PRN (04:01)
[2019-12-17 05:14] VITALS: BP 138/77
[2019-12-17 05:43] LABS: ALBUMIN 3.1 G/DL (3.4-5.0); ANION GAP 4 (8-16); BLOOD UREA NITROGEN 5 MG/DL (7-18); BUN/CREATININE RATIO 9.4 (6.6-38.0); CALCIUM 8.5 MG/DL (8.5-10.1); CHLORIDE 103 MMOL/L (99-107); CREATININE 0.53 MG/DL (0.40-0.90); GLUCOSE 105 MG/DL (70-104); POTASSIUM 3.7 MMOL/L (3.5-5.1); SODIUM 137 MMOL/L (135-145); TOTAL CARBON DIOXIDE 30.4 MMOL/L (24-32); eGFR > 90 ML/MIN
--- NOTE | 2019-12-17 06:04 | NUR ---
Problems reprioritized. Patient report given, questions answered & plan of care reviewed with JENNI STEPHEN.
[2019-12-17 06:27] LABS: BASOPHILS % (AUTO) 1.3 % (0-1); HEMOGLOBIN 9.1 g/dl (12.0-16.0); RED CELL DISTRIBUTION WIDTH 13.6 % (11.5-14.5)
--- NOTE | 2019-12-17 06:28 | NUR ---
Patient in room MED 310. I have received report from Nuvia and had the opportunity to ask questions and assume patient care.
[2019-12-17 06:29] LABS: BASOPHILS # (AUTO) 0.1 X10'3 (0-0.2); EOSINOPHILS # (AUTO) 0.9 X10'3 (0-0.9); EOSINOPHILS % (AUTO) 8.5 % (0-6); HEMATOCRIT 24.8 % (35.0-45.0); LYMPHOCYTES # (AUTO) 2.5 X10'3 (1.1-4.8); LYMPHOCYTES % (AUTO) 22.9 % (21-51); MEAN CORPUSCULAR HEMOGLOBIN 33.8 PG (27.0-31.0); MEAN CORPUSCULAR HGB CONC 36.8 g/dL (33.0-36.5); MEAN CORPUSCULAR VOLUME 91.8 FL (78-98); MEAN PLATELET VOLUME 9.6 FL (7.4-10.4); MONOCYTES % (AUTO) 9.7 % (2-12); NEUTROPHILS # (AUTO) 6.2 X10'3 (1.8-7.7); NEUTROPHILS % (AUTO) 57.6 % (42-75); WHITE BLOOD COUNT 10.8 X10'3 (4.5-11.0)
[2019-12-17 06:30] LABS: PLATELET COUNT 281 X10'3 (140-440)
[2019-12-17 07:18] LABS: NUCLEATED RED BLOOD CELLS 14 /100WBC (0-0); PLATELET ESTIMATE NORMAL; TOTAL CELLS COUNTED 100
[2019-12-17 07:19] LABS: ANISOCYTOSIS 1+; LARGE PLATELETS FEW; POLYCHROMASIA 2+; SPHEROCYTES 1+
[2019-12-17 07:37] VITALS: BP 127/74
[2019-12-17] MEDS: magnesium Cl slow-release 64mg tablet PO SCH ×2 (07:50→20:48)
[2019-12-17] MEDS: metoprolol tartrate 12.5mg (1/2 tablet) PO SCH ×2 (07:50→20:47)
[2019-12-17] MEDS: atorvastatin 10mg tablet PO SCH (07:51)
[2019-12-17] MEDS: CITALOpram 10mg tablet PO SCH (07:51)
[2019-12-17] MEDS: pantoprazole 40mg Tablet.DR PO SCH (07:52)
[2019-12-17] MEDS: potassium Cl 20 mEq SR tablet PO SCH ×2 (07:52→21:10)
[2019-12-17] MEDS: potassium Cl 20 mEq SR tablet PO PRN ×3 (07:53→14:02)
[2019-12-17] MEDS: sennosides/docusate sodium tablet PO SCH ×2 (07:53→20:48)
[2019-12-17] MEDS: aspirin 325mg tablet, delayed-release (Ecotrin) PO SCH (07:54)
[2019-12-17] MEDS: levoTHYROXINE 88mcg tablet PO SCH (07:54)
[2019-12-17 10:00] VITALS: BP 107/72
--- NOTE | 2019-12-17 13:28 | NUR ---
CABG Consult: Pt s/p CABGx2 and seen by RD for written/verbal CABG/HH diet eds w/ RD contact information provided. Per RN, pt is deaf but can read lips and okay to remove mask during ed while wearing face shield. PO ~50-75% avg meals; pt reports appetite is improving and enjoys food. LBM 12/11 receiving routine senna w/ PRN MoM this AM. Pt reports typically BM every 5 days at home though acknowledges that is abnormal; declines prune juice at this time though pt says has used enemas prior if need be. RD d/w RN regarding additional bowel care if MD agreeable. Pt also agreeable to bert shake BIDBD for wound healing; to alternate flavors per preference. MD notified. Receiving electrolyte replacement per protocol. Will continue to monitor for additional protein needs post-op. Rec: 1. advance diet as medically indicated to heart healthy 2. bert shake BIDBD; alternate flavors per pt preference 3. routine bowel care 4. weekly wts Addendum: 12/17/19 at [address] Amended: Links added.
[2019-12-17 14:03] VITALS: BP 117/54
--- NOTE | 2019-12-17 16:52 | NUR ---
Report given to Katherine RN
[2019-12-17] MEDS: JUVEN Shake w/Arg/Glut/Ca2+Bmb (Juven 19.3gm) pkt 240ml PO SCH (17:30)
[2019-12-17 18:00] VITALS: BP 150/87
--- NOTE | 2019-12-17 18:36 | NUR ---
Patient in room MED 310. I have received report from KEITH RN and had the opportunity to ask questions and assume patient care.
--- NOTE | 2019-12-17 19:00 | NUR ---
REINFORCED WITH PATIENT THAT IT IS CRITICAL TO INCREASE PARTICIPATION WITH: -AMBULATION, INCENTIVE SPIROMETER AND FLUTTER VALVE USAGE THIS PROMOTES BETTER OXYGENATION STATUS, PREVENTS ATELECTASIS -NEED FOR INCREASED ACTIVITY/AMBULATION TO PROMOTE IMPROVED OXYGENATION STATUS, PREVENT BLOOD COAGULATION ISSUES; -ABILITY TO HAVE BOWEL MOVEMENT, HYDRATION STATUS PROMOTES OVERALL IMPROVEMENT IN HEALING PROCESS WHILE IN HOSPITAL. -HANDOUTS TO TRACK IS AND FLUTTER VALVE GIVEN TO PATIENT BY PIPE COVERER HELPERISATU. WORKED 4 TIMES PRIOR TO 2200 WITH PATIENT TO MONITOR IS/FLUTTER VALVE USAGE, ENCOURAGED PATIENT TO USE EVERY HOUR WHILE AWAKE AND WRITE DOWN PROGRESS OCHECKLIST SHEET. -PATIENT WALKED ONE LAP AROUND UNIT, MAG CITRATE GIVEN, WILL CONTINUE TO MONITOR FOR IMPROVED O2 STATUS, BOWEL MOVEMENT. ABDIEL STEPHEN
--- NOTE | 2019-12-17 19:28 | NUR ---
Ambulated patient approximately 200 ft. with 3L O2. Patient tolerated activity fair. Reeducated on the importance of using IS and proper technique. IS log left at bedside and patient instructed to fill in as she used it.
[2019-12-17] MEDS ORDERED: atorvastatin 20mg tablet PO SCH (21:00)
[2019-12-17 22:00] VITALS: BP 129/77
[2019-12-18] MEDS: albuterol 2.5 MG/3 ML nebule NEB PRN (01:41)
[2019-12-18] MEDS: potassium Cl 20 mEq SR tablet PO SCH ×2 (02:07→20:45)
[2019-12-18 03:10] VITALS: BP 115/69
[2019-12-18 06:00] VITALS: BP 118/68
--- NOTE | 2019-12-18 06:39 | NUR ---
Problems reprioritized. Patient report given, questions answered & plan of care reviewed with PAT RN.
--- NOTE | 2019-12-18 06:44 | NUR ---
Problems reprioritized. Patient report given, questions answered & plan of care reviewed with PAT RN.
[2019-12-18 07:25] LABS: HEMOGLOBIN 9.9 g/dl (12.0-16.0)
[2019-12-18 07:28] LABS: RED CELL DISTRIBUTION WIDTH 13.7 % (11.5-14.5)
[2019-12-18] MEDS: JUVEN Shake w/Arg/Glut/Ca2+Bmb (Juven 19.3gm) pkt 240ml PO SCH ×2 (07:30→17:30)
[2019-12-18] MEDS: magnesium Cl slow-release 64mg tablet PO SCH ×2 (08:00→20:45)
--- NOTE | 2019-12-18 08:00 | NUR ---
PATIENT IS DOCUMENTING ON INCENTIVE SPIROMETER RECORD FORM, PULLING IS 500- 750.HOB UP CALL LIGHT IN REACH. DR. LOZOYA AND ADAN INTO SEE PATIENT. Addendum: 12/18/19 at 1731 by Lyudmila Hubbard RN Amended: Links added.
[2019-12-18 08:02] LABS: ALBUMIN 3.3 G/DL (3.4-5.0); ANION GAP 9 (8-16); BLOOD UREA NITROGEN 6 MG/DL (7-18); BUN/CREATININE RATIO 12.5 (6.6-38.0); CALCIUM 8.8 MG/DL (8.5-10.1); CHLORIDE 101 MMOL/L (99-107); CREATININE 0.48 MG/DL (0.40-0.90); GLUCOSE 98 MG/DL (70-104); SODIUM 136 MMOL/L (135-145); TOTAL CARBON DIOXIDE 26.2 MMOL/L (24-32); eGFR > 90 ML/MIN
[2019-12-18 08:03] LABS: POTASSIUM 4.2 MMOL/L (3.5-5.1)
[2019-12-18] MEDS: ondansetron/PF 4mg/2ml inj IV PRN (08:36)
[2019-12-18 08:37] LABS: HEMATOCRIT 26.9 % (35.0-45.0); MEAN CORPUSCULAR VOLUME 92.9 FL (78-98); WHITE BLOOD COUNT 13.4 X10'3 (4.5-11.0)
[2019-12-18 08:38] LABS: MEAN CORPUSCULAR HEMOGLOBIN 34.1 PG (27.0-31.0); MEAN CORPUSCULAR HGB CONC 36.7 g/dL (33.0-36.5); MEAN PLATELET VOLUME 9.7 FL (7.4-10.4); PLATELET COUNT 398 X10'3 (140-440)
[2019-12-18] MEDS: aspirin 325mg tablet, delayed-release (Ecotrin) PO SCH (08:38)
[2019-12-18] MEDS: CITALOpram 10mg tablet PO SCH (08:38)
[2019-12-18] MEDS: metoprolol tartrate 12.5mg (1/2 tablet) PO SCH ×2 (08:38→20:45)
[2019-12-18] MEDS: atorvastatin 20mg tablet PO SCH (08:39)
[2019-12-18] MEDS: sennosides/docusate sodium tablet PO SCH ×2 (08:39→20:45)
[2019-12-18] MEDS: pantoprazole 40mg Tablet.DR PO SCH (08:39)
[2019-12-18] MEDS: levoTHYROXINE 88mcg tablet PO SCH (08:39)
[2019-12-18] MEDS: HYDROcodone/acetaminophen 10/325mg tab PO PRN ×2 (08:41→16:35)
[2019-12-18 09:49] LABS: ANISOCYTOSIS 1+; LARGE PLATELETS FEW; NUCLEATED RED BLOOD CELLS 10 /100WBC (0-0); PLATELET ESTIMATE NORMAL; POLYCHROMASIA 2+; SPHEROCYTES 1+; TOTAL CELLS COUNTED 100
[2019-12-18 09:50] LABS: TOXIC VACUOLATION 1+
[2019-12-18 09:51] LABS: SMUDGE CELLS 1+
[2019-12-18 10:00] VITALS: BP 95/54
[2019-12-18] MEDS ORDERED: losartan 25mg tablet PO SCH (12:00)
[2019-12-18] MEDS ORDERED: spironolactone 25 MG tablet PO SCH (12:00)
[2019-12-18 12:47] LABS: MAGNESIUM 2.3 MG/DL (1.5-2.4)
[2019-12-18 14:00] VITALS: BP 109/61
[2019-12-18 18:00] VITALS: BP 115/61
--- NOTE | 2019-12-18 18:30 | NUR ---
Patient in room MED 310. I have received report from Juventino, and had the opportunity to ask questions and assume patient care.
[2019-12-18 22:00] VITALS: BP 98/54
[2019-12-19] MEDS: HYDROcodone/acetaminophen 10/325mg tab PO PRN ×3 (01:01→10:07)
[2019-12-19 02:00] VITALS: BP 114/61
[2019-12-19 05:57] LABS: ALBUMIN 3.2 G/DL (3.4-5.0); ANION GAP 6 (8-16); BLOOD UREA NITROGEN 15 MG/DL (7-18); BUN/CREATININE RATIO 25.9 (6.6-38.0); CALCIUM 9.2 MG/DL (8.5-10.1); CHLORIDE 103 MMOL/L (99-107); CREATININE 0.58 MG/DL (0.40-0.90); GLUCOSE 101 MG/DL (70-104); POTASSIUM 4.6 MMOL/L (3.5-5.1); SODIUM 137 MMOL/L (135-145); TOTAL CARBON DIOXIDE 27.9 MMOL/L (24-32); eGFR > 90 ML/MIN
[2019-12-19 06:00] VITALS: BP 103/48
--- NOTE | 2019-12-19 06:30 | NUR ---
Patient in room MED 310. I have received report from Solomon STEPHEN and had the opportunity to ask questions and assume patient care.
--- NOTE | 2019-12-19 06:35 | NUR ---
Problems reprioritized. Patient report given to Caroline, questions answered & plan of care reviewed with .
[2019-12-19] MEDS: JUVEN Shake w/Arg/Glut/Ca2+Bmb (Juven 19.3gm) pkt 240ml PO SCH (07:30)
[2019-12-19 07:50] VITALS: BP_SYST 103
[2019-12-19] MEDS: metoprolol tartrate 12.5mg (1/2 tablet) PO SCH (07:50)
[2019-12-19] MEDS: CITALOpram 10mg tablet PO SCH (07:50)
[2019-12-19] MEDS: sennosides/docusate sodium tablet PO SCH (07:50)
[2019-12-19] MEDS: levoTHYROXINE 88mcg tablet PO SCH (07:50)
[2019-12-19] MEDS: atorvastatin 20mg tablet PO SCH (07:50)
[2019-12-19] MEDS: aspirin 325mg tablet, delayed-release (Ecotrin) PO SCH (07:50)
[2019-12-19] MEDS: pantoprazole 40mg Tablet.DR PO SCH (07:50)
[2019-12-19 08:22] LABS: MAGNESIUM 2.2 MG/DL (1.5-2.4)
[2019-12-19] MEDS ORDERED: SPIR25TA PO (08:53)
[2019-12-19] MEDS ORDERED: METO25TA6 PO (08:53)
[2019-12-19] MEDS ORDERED: ATOR20TA66 PO (08:53)
[2019-12-19] MEDS ORDERED: HYDR-4353 PO (08:53)
[2019-12-19] MEDS ORDERED: LOSA25TA41 PO (08:53)
[2019-12-19] MEDS ORDERED: ASPI-845 PO (08:53)
--- NOTE | 2019-12-19 10:34 | NUR ---
Discharge orders given. Walker delivered for pt. She has remained stable VSS. IV discontinued and it had no s/s of complications. Instructions and education given to pt she stated understanding. She was given written instructions and education as well. All belongings accounted for. She was taken via wheelchair to private vehicle driven by her .
== END 2019-12-19 10:33 | disposition home health service (06) | DRG 231 ==
LOC: ER 10:01 → ED HOLD 11:58 → ICU 2S 15:50 → MED 3N 12-15 12:17
PROVIDERS: ADMIT Family Medicine; ATTEND Family Medicine
PROC: 02703ZZ Dilation of Coronary Artery, One Artery, Percutaneous Approach (ICD-10-PCS; 2019-12-12)
PROC: 021009W Bypass Coronary Artery, One Artery from Aorta with Autologous Venous Tissue, Open Approach (ICD-10-PCS; 2019-12-12)
PROC: 5A02210 Assistance with Cardiac Output using Balloon Pump, Continuous (ICD-10-PCS; 2019-12-12)
PROC: 02100Z9 Bypass Coronary Artery, One Artery from Left Internal Mammary, Open Approach (ICD-10-PCS; 2019-12-12)
PROC: 06BQ4ZZ Excision of Left Saphenous Vein, Percutaneous Endoscopic Approach (ICD-10-PCS; 2019-12-12)
PROC: B2151ZZ Fluoroscopy of Left Heart using Low Osmolar Contrast (ICD-10-PCS; 2019-12-12)
PROC: 4A023N7 Measurement of Cardiac Sampling and Pressure, Left Heart, Percutaneous Approach (ICD-10-PCS; 2019-12-12)
PROC: B24BZZ4 Ultrasonography of Heart with Aorta, Transesophageal (ICD-10-PCS; 2019-12-12)
PROC: 5A1221Z Performance of Cardiac Output, Continuous (ICD-10-PCS; 2019-12-12)
PROC: 03HY32Z Insertion of Monitoring Device into Upper Artery, Percutaneous Approach (ICD-10-PCS; 2019-12-12)
PROC: 4A133B1 Monitoring of Arterial Pressure, Peripheral, Percutaneous Approach (ICD-10-PCS; 2019-12-12)
PROC: 4A133J1 Monitoring of Arterial Pulse, Peripheral, Percutaneous Approach (ICD-10-PCS; 2019-12-12)
PROC: 02HV33Z Insertion of Infusion Device into Superior Vena Cava, Percutaneous Approach (ICD-10-PCS; 2019-12-12)
PROC: B548ZZA Ultrasonography of Superior Vena Cava, Guidance (ICD-10-PCS; 2019-12-12)
PROC: B2111ZZ Fluoroscopy of Multiple Coronary Arteries using Low Osmolar Contrast (ICD-10-PCS; principal; 2019-12-12 16:28)
PROC: 30233M1 Transfusion of Nonautologous Plasma Cryoprecipitate into Peripheral Vein, Percutaneous Approach (ICD-10-PCS; 2019-12-13)
DX: I21.3 ST elevation (STEMI) myocardial infarction of unspecified site (principal); I50.31 Acute diastolic (congestive) heart failure; D62 Acute posthemorrhagic anemia; E03.9 Hypothyroidism, unspecified; F32.9 Major depressive disorder, single episode, unspecified; N92.0 Excessive and frequent menstruation with regular cycle; R19.7 Diarrhea, unspecified; F41.9 Anxiety disorder, unspecified; I25.10 Atherosclerotic heart disease of native coronary artery without angina pectoris; Z87.891 Personal history of nicotine dependence; Z90.81 Acquired absence of spleen
CPT/HCPCS: 0232T; 33967; 76937; 93312; 93325; 93458; 99291; C9600; Z7506; Z7508; 36415; 36430; 36600; 71045; 80048; 80053; 82330; 82435; 82803; 82947; 82948; 83036; 83735; 83880; 84100; 84132; 84295; 84439; 84443; 84478; 84484; 85007; 85008; 85018; 85025; 85347; 85384; 85610; 85730; 86885; 86900; 86901; 86920; 87070; 87081; 87635; 93005; 93880; 94002; 94003; 94640; 94668; 94760; 97110; 97116; 97162; 97530; 99152; 99153; A4618; A4620; A6258; A6402; A6449; A7000; A7048; C1713; C1725; C1751; C1769; C1874; C9113; C9250; G0378; J0690; J0780; J1170; J1250; J1644; J1815; J1885; J1940; J2001; J2150; J2250; J2270; J2370; J2405; J2440; J2704; J2720; J2930; J3010; J3370; J3475; J3480; J3490; J7030; J7040; J7050; J7060; J7120; P9012; P9045; P9047; Q9967